=== PATIENT | female | born 1980 | race Two or more races ===

== ENCOUNTER 2018-10-16 17:58 | Emergency (ER) | payer OTHER ==
[~2018-10-16] VITALS: Ht 170.2 cm; Wt 76.7 kg
[2018-10-16 19:11] LABS: BASO # 0.1 x10^3/uL (0.0-0.2); BASO % 1 % (0-3); EOS # 0.1 x10^3/uL (0.0-0.7); EOS % 1 % (0-3); HEMOGLOBIN 13.9 g/dL (12.0-15.5); LYMPH % 27 % (24-48); MEAN CORPUSCULAR HEMOGLOBIN 28 pg (25-35); MEAN CORPUSCULAR HGB CONC 35 g/dL (31-37); MEAN CORPUSCULAR VOLUME 80 fL (79-100); MONO # 0.4 x10^3/uL (0.0-1.1); MONO % 6 % (0-9); NEUT # 4.7 x10^3/uL (1.8-7.7); NEUT % 65 % (31-73); PLATELET COUNT 355 x10^3/uL (140-400); RED CELL DISTRIBUTION WIDTH 14.5 % (11.5-14.5); WHITE BLOOD COUNT 7.3 x10^3/uL (4.0-11.0)
--- NOTE | 2018-10-16 19:14 | PHYS DOC ---
Past Medical History Past Medical History: Hypothyroid, Kidney Stone Past Surgical History: Other Additional Past Surgical Histo: kidney stone Alcohol Use: None Drug Use: None Adult General Chief Complaint Chief Complaint: SHORTNESS OF BREATH HPI HPI Patient is a 38 year old [place] aching female who presents with chest heaviness intermittent times several days. Patient reports some difficulty catching a deep breath. Pain is nonradiating. It is not worse with exertion or relieved with rest. Denies fever cough, sore throat. Denies leg pain or swelling. Does report history of anxiety and recently diagnosed hypothyroidism. No other acute symptoms or complaints.[] Review of Systems Review of Systems Review symptoms as per history of present illness. All other review symptoms are negative. All other systems were reviewed and found to be within normal limits, except as documented in this note. Current Medications Current Medications Current Medications Medications (Trade) Dose Ordered Sig/Gilles Start Time Stop Time Status Last Admin Dose Admin Acetaminophen (Tylenol) 650 mg 1X ONCE 10/16/18 20:00 10/16/18 20:01 DC 10/16/18 19:35 650 MG Albuterol/ Ipratropium (Duoneb) 3 ml 1X ONCE 10/16/18 19:30 10/16/18 19:31 Cancel Lorazepam (Ativan) 0.5 mg 1X ONCE 10/16/18 19:30 10/16/18 19:31 DC 10/16/18 20:17 0.5 MG Allergies Allergies Allergies Coded Allergies Type Severity Reaction Last Updated Verified Penicillins Allergy Intermediate 10/16/18 Yes Physical Exam Physical Exam Constitutional: Well developed, well nourished, no acute distress, non-toxic appearance. [] HENT: Normocephalic, atraumatic, bilateral external ears normal, oropharynx moist, nose normal. [] Eyes: PERRLA, EOMI, conjunctiva normal, no discharge. [] Neck: Normal range of motion, no tenderness. [] Cardiovascular:Heart rate regular rhythm, no murmur [] Lungs & Thorax: Bilateral breath sounds clear to auscultation [] Abdomen: Bowel sounds normal, soft, no tenderness. [] Skin: Warm, dry, no erythema. [] Back: No tenderness, no CVA tenderness. [] Extremities: No tenderness. [] Neurologic: Alert and oriented X 3, normal motor function, normal sensory function, no focal deficits noted. [] Psychologic: Affect normal, judgement normal, mood normal. [] Current Patient Data Vital Signs Vital Signs Date Time Temp Pulse Resp B/P (MAP) Pulse Ox O2 Delivery O2 Flow Rate FiO2 10/16/18 18:28 98.9 103 16 127/80 (96) 98 Room Air 98.9 Lab Values Laboratory Tests Test 10/16/18 18:19 10/16/18 18:45 POC Urine HCG, Qualitative Hcg negative (Negative) White Blood Count 7.3 x10^3/uL (4.0-11.0) Red Blood Count 5.00 x10^6/uL (3.50-5.40) Hemoglobin 13.9 g/dL (12.0-15.5) Hematocrit 40.0 % (36.0-47.0) Mean Corpuscular Volume 80 fL (79-100) Mean Corpuscular Hemoglobin 28 pg (25-35) Mean Corpuscular Hemoglobin Concent 35 g/dL (31-37) Red Cell Distribution Width 14.5 % (11.5-14.5) Platelet Count 355 x10^3/uL (140-400) Neutrophils (%) (Auto) 65 % (31-73) Lymphocytes (%) (Auto) 27 % (24-48) Monocytes (%) (Auto) 6 % (0-9) Eosinophils (%) (Auto) 1 % (0-3) Basophils (%) (Auto) 1 % (0-3) Neutrophils # (Auto) 4.7 x10^3/uL (1.8-7.7) Lymphocytes # (Auto) 2.0 x10^3/uL (1.0-4.8) Monocytes # (Auto) 0.4 x10^3/uL (0.0-1.1) Eosinophils # (Auto) 0.1 x10^3/uL (0.0-0.7) Basophils # (Auto) 0.1 x10^3/uL (0.0-0.2) D-Dimer (Gabriela) 0.39 ug/mlFEU (0.00-0.50) Sodium Level 139 mmol/L (136-145) Potassium Level 3.6 mmol/L (3.5-5.1) Chloride Level 102 mmol/L (98-107) Carbon Dioxide Level 25 mmol/L (21-32) Anion Gap 12 (6-14) Blood Urea Nitrogen 9 mg/dL (7-20) Creatinine 1.0 mg/dL (0.6-1.0) Estimated GFR (Cockcroft-Gault) 61.4 BUN/Creatinine Ratio 9 (6-20) Glucose Level 89 mg/dL (70-99) Calcium Level 9.0 mg/dL (8.5-10.1) Total Bilirubin 0.4 mg/dL (0.2-1.0) Aspartate Amino Transferase (AST) 18 U/L (15-37) Alanine Aminotransferase (ALT) 23 U/L (14-59) Alkaline Phosphatase 79 U/L (46-116) Troponin I Quantitative < 0.017 ng/mL (0.000-0.055) Total Protein 8.5 g/dL (6.4-8.2) H Albumin 3.9 g/dL (3.4-5.0) Albumin/Globulin Ratio 0.8 (1.0-1.7) L Laboratory Tests 10/16/18 18:45 Laboratory Tests 10/16/18 18:45 EKG EKG [EKG: reviewed] Radiology/Procedures Radiology/Procedures [CXR: No acute cardiopulmonary disease on preliminary ED review] Course & Med Decision Making Course & Med Decision Making Pertinent Labs and Imaging studies reviewed. (See chart for details) [Chest pain in the setting of height and anxiety state. Patient monitoring concerned that she may be dying. Symptoms are long-standing. Patient initially declines anxiety medication due to concern of potential side effects for thyroid medications. Patient reassured and instructed to ] follow-up with PCP for long- term management of anxiety. Return precautions reviewed. Dragon Disclaimer Dragon Disclaimer This electronic medical record was generated, in whole or in part, using a voice recognition dictation system. Departure Departure Impression: Primary Impression: Chest pain Additional Impression: Anxiety state Disposition: 01 HOME, SELF-CARE Condition: GOOD Referrals: UNKNOWN PCP NAME (PCP) Patient Instructions: Anxiety and Panic Attacks, [id number] Additional Instructions: Please take anxiety medication as directed and follow-up with your local primary care physician in 3-5 days for reevaluation. Return to the ED if new or concerning symptoms. Scripts Lorazepam (ATIVAN) 0.5 Mg Tablet 0.5 MG PO BID, #10 TAB Prov: JUANCHO SANCHEZ DO 10/16/18 Problem Qualifiers JUANCHO SANCHEZ DO Oct 16, 2018 19:14
[2018-10-16 19:22] LABS: GFR 61.4; POTASSIUM 3.6 mmol/L (3.5-5.1)
[2018-10-16 19:27] LABS: ALBUMIN 3.9 g/dL (3.4-5.0); ALBUMIN/GLOBULIN RATIO 0.8 (1.0-1.7); TOTAL BILIRUBIN 0.4 mg/dL (0.2-1.0); TOTAL PROTEIN 8.5 g/dL (6.4-8.2)
[2018-10-16] MEDS ORDERED: IPRATRPIUM/ALBUTEROL 0.5/2.5MG 3 ML NEBU. NEB ONE (19:30)
[2018-10-16] MEDS: ACETAMINOPHEN 325 MG TABLET. PO ONE (19:35)
[2018-10-16] MEDS: LORazepam 0.5 MG TABLET PO ONE (20:17)
[2018-10-16] MEDS ORDERED: LORA0.5T96 PO (20:31)
[2018-10-16 20:33] VITALS: BP 116/73
--- NOTE | 2018-10-17 02:22 | RAD ---
AP portable chest radiograph 10/16/2018 Clinical History: Chest pain. An AP erect portable digital radiograph of the chest was obtained. The cardiac and mediastinal silhouettes are within normal limits in size and configuration. No acute pulmonary infiltrate is seen. No pleural effusion or pneumothorax is noted. The osseous structures are grossly intact. IMPRESSION: No acute abnormality is seen. Electronically signed by: Osmar Burnham MD (10/17/2018 2:19 AM) [facility]
--- NOTE | 2018-10-17 06:30 | EKG ---
[facility] [address] [place] [address] Test Date: 2018-10-16 Test Time: 18:28:26 Pat Name: REGGIE PEOPLES Department: Room: Gender: F Cardiac Tech: : [id number] Requested By: JUANCHO SANCHEZ Order Number: [id number] Reading MD: Measurements Intervals [place] Rate: 103 P: 38 RI: 160 QRS: 43 QRSD: 72 T: 22 QT: 340 QTc: 447 Interpretive Statements SINUS TACHYCARDIA T ABNORMALITY IN ANTERIOR LEADS ABNORMAL ECG RI6.01 No previous ECG available for comparison
== END 2018-10-16 20:55 | disposition home or self-care (01) ==
LOC: ER 17:58
DX: R07.89 Other chest pain (principal); F41.9 Anxiety disorder, unspecified; E03.9 Hypothyroidism, unspecified; Z87.442 Personal history of urinary calculi; Z88.0 Allergy status to penicillin
CPT/HCPCS: 36415; 71045; 80053; 81025; 84484; 85025; 85379; 93005; 99285